=== PATIENT | male | born 1990 | race African-American/Black ===

== ENCOUNTER 2017-10-12 16:25 | Emergency (ER) | payer OTHER ==
[~2017-10-12] VITALS: Ht 193 cm; Wt 90.6 kg
[~2017-10-12 16:25] MED LIST: ALBUTEROL SULF8.5 GM IH; DILAUDID2 MG PO; KEFLEX500 MG PO; NOHOMEMEDS; PREDNISONE50 MG PO; SENOKOT S,PE1 TABLET PO; SYMMETREL100 M2 PO; TESSALON PERLE100 MG PO; TYLENOL WITH C1 EACH PO; ZANTAC150 MG PO; ZOFRAN4 MG PO
[2017-10-12 17:17] LABS: HEMATOCRIT 42.3 % (38.0-50.0); HEMOGLOBIN 14.7 G/DL (12.5-16.6); MCH 32.3 PG (29.0-34.0); MCHC 34.8 G/DL (30.0-36.0); PLATELET COUNT 235 K/uL (156-360); RBC DIS.WIDTH-CV 12.9 % (11.8-14.6); RED BLOOD COUNT 4.55 M/uL (4.00-5.50); WHITE BLOOD COUNT 6.5 K/uL (4.1-10.2)
[2017-10-12 17:37] LABS: TROP-I INTERPRETATION NEGATIVE; TROPONIN-I < 0.01 ng/mL (0.0-0.30)
[2017-10-12 17:53] LABS: CHLORIDE 107 MEQ/L (99-109); CREATININE 1.3 MG/DL (0.6-1.3); GFR ESTIMATE (CALCULATED) > 59 mL/min/ (58.99-99999); GLUCOSE 94 mg/dL (70-99); POTASSIUM 4.3 MEQ/L (3.7-5.4); SODIUM 141 MEQ/L (136-147); UREA NITROGEN (BUN) 13 mg/dL (9-23)
[2017-10-12 20:31] LABS: TROP-I INTERPRETATION NEGATIVE; TROPONIN-I < 0.01 ng/mL (0.0-0.30)
[2017-10-12] MEDS ORDERED: NAPROXEN500 MG PO (20:37)
[2017-10-12 20:50] VITALS: BP 138/83
== END 2017-10-12 20:50 | disposition home or self-care (01) ==
LOC: EME 16:25
PROVIDERS: Physician Assistant Medical
DX: R07.89 Other chest pain (principal); R00.1 Bradycardia, unspecified; R94.31 Abnormal electrocardiogram [ECG] [EKG]; J45.909 Unspecified asthma, uncomplicated; F17.210 Nicotine dependence, cigarettes, uncomplicated; Z87.828 Personal history of other (healed) physical injury and trauma; Z98.890 Other specified postprocedural states
CPT/HCPCS: 71046; 80048; 84484; 85027; 93005; 94640; 99281; 99285